=== PATIENT | female | born 1985 | race Caucasian/White ===

== ENCOUNTER 2020-05-24 13:31 | Observation (INO) | payer SELFPAY ==
[2020-05-24] VITALS (7 sets, daily range): BP systolic 123–139; BP diastolic 67–92; PULSE 63–82; RESP 20; TEMP 36.3–36.5; O2SAT 98–100; BMI 33.8
--- NOTE | ~2020-05-24 | MR_ITS ---
EXAMINATION: MR brain/brain stem wo/w con DATE: 05/25/2020 09:27 INDICATION: Dizziness. Right hand numbness. Headache/pain/pressure around the right eye. TECHNIQUE: Magnetic resonance imaging (MRI) of the brain and brainstem was performed without and with 19 mL Multihance intravenous contrast. Sequences included sagittal and axial T1-weighted SE, axial d iffusion-weighted FS SE, axial T2*-weighted GRE, axial T2-weighted FLAIR, and axial T2-weighted FSE. Postcontrast axial and coronal T1-weighted SE was obtained. Apparent diffusion coefficient (ADC) maps were created. COMPARISON: Brain MR dated 10/13/[address] dated 05/24/2020 FINDINGS: There are no areas of restricted diffusion to suggest acute infarction. No intracranial hemorrhage or abnormal intracranial mass lesion. There are no intraparenchymal signal abnormalities seen on the ot her pulse sequences. The ventricles are symmetric and normal in size. There are no abnormal extra-axi al fluid collections. Flow voids are seen in the cerebral arteries on the T2-weighted sequences consi stent with their expected patency. Visualized orbits and soft tissues are unremarkable. There are no areas of abnormal enhancement on the post contrast images. IMPRESSION: 1. Normal brain MR. Reviewed, dictated and finalized at location A. IMPRESSION: 1. Normal brain MR.
--- NOTE | ~2020-05-24 | CT_ITS ---
EXAMINATION: CTA brain carotid EXAM DATE: 05/25/2020 09:43 INDICATION: Dizziness, right hand numbness. TECHNIQUE: Noncontrast head CT. Spiral CTA of the carotid arteries was performed with intravenous i njection 100 cc of Omnipaque 350. Axial, coronal, sagittal reformatted images reviewed. Additional r eformatted images created on dedicated 3-D workstation. NASCET comparable standard used to assess th e degree of arterial stenosis. Spiral CT angiogram cerebral arteries performed with the same intrave nous injection of contrast. Source images of the brain CTA transferred to dedicated workstation for 3 -D rotational image creation. Coronal, sagittal maximum intensity pixel images also reviewed. The d ose-length product (DLP) for this examination was 1636.79 mGy-cm. The exposure was tailored accordi ng to patient size, and iterative reconstruction (ASIR) was used as additional dose reduction techniq ue. Correlation is made to brain MRI earlier same date. FINDINGS: There is no carotid plaque or stenosis. The vertebral arteries are codominant. There is no carotid or vertebral basilar arterial dissection or fibromuscular dysplasia. There are no cerebral a rtery aneurysms. There is symmetric cerebral artery arborization. The sagittal, transverse and sigmoi d sinuses enhance normally, no venous sinus thrombosis. Internal cerebral veins also enhance normally . There is no acute intraparenchymal hemorrhage. No evidence of intraparenchymal brain mass lesion. N o evidence of acute infarction. There is no mass effect or midline shift. There is no obstructive hyd rocephalus suspected. There are no extra-axial collections. There are no calvarial acute fractures. There are no areas of abnormal enhancement on the post contrast images. IMPRESSION: 1. Normal CTA brain carotid exam. 2. No carotid plaque or stenosis. Reviewed, dictated and finalized at location G.
--- NOTE | ~2020-05-24 | CT_ITS ---
EXAMINATION: CT abdomen pelvis w con DATE: 05/24/2020 15:48 INDICATION: Right lower quadrant abdominal pain, leukocytosis TECHNIQUE: Computed tomography (CT) of the abdomen and pelvis was performed with 100 cc Omnipaque 350 intravenous contrast. Automated exposure control and iterative reconstruction technique were employe barry. Exam dose: 1184.24 mGy-cm total exam DLP. COMPARISON: 03/24/2015 CT abdomen pelvis FINDINGS: The lung bases are clear. Normal heart size. No pericardial or pleural effusion. The liver, gallbladder, bile ducts, spleen, pancreas and pancreatic duct, and adrenal glands and kidn eys are unremarkable. Normal caliber of the abdominal aorta. No intraperitoneal or retroperitoneal or pelvic mass lesion or adenopathy or ascites. The urinary bladder, uterus and adnexal areas are unremarkable. Probable appendectomy. No bowel obstruction, bowel wall thickening, pneumatosis or intraperitoneal free air. Fat-containing small umbilical hernia. Probable hemangioma of the left side of the L4 vertebral body. IMPRESSION: Probable appendectomy Reviewed, dictated and finalized at Location A. Reviewed, dictated and finalized at location A. IMPRESSION: Probable appendectomy
--- NOTE | ~2020-05-24 | XR_ITS ---
XR chest 2V DATE: 05/24/2020 14:29 INDICATION: Chest pain, right numbness and tingling in the groin area. TECHNIQUE: PA and lateral views COMPARISON: None FINDINGS: Normal heart size. No hilar or mediastinal enlargement. The lungs are clear of infiltrate o r consolidation. No pleural effusion or pulmonary vascular congestion or pneumothorax. IMPRESSION: No active cardiopulmonary disease Reviewed, dictated and finalized at location A.
--- NOTE | ~2020-05-24 | CT_ITS ---
EXAMINATION: CT brain wo con DATE: 05/24/2020 14:27 INDICATION: Right upper extremity paresis. Right-sided numbness. TECHNIQUE: Computed tomography (CT) of the head was performed without intravenous contrast. The mA wa s adjusted according to patient size. Iterative reconstruction technique was employed. Exam dose: 60 5.33 mGy-cm total exam DLP. COMPARISON: 10/13/2016 MRI brain/brainstem FINDINGS: No intracranial mass lesion or hemorrhage or cerebrovascular accident. No midline shift or mass effect. No subdural or epidural hematoma. Normal ventricular size. The orbits are unremarkable. The mastoid air cells and paranasal sinuses included in the examination are unremarkable. No skull fr acture or bone destruction. IMPRESSION: Normal examination Reviewed, dictated and finalized at Location A. Reviewed, dictated and finalized at location A. IMPRESSION: Normal examination
--- NOTE | 2020-05-24 13:33 | ECG_ITS ---
Measurements Intervals [place] Rate: 79 P: 53 WA: 167 QRS: 54 QRSD: 95 T: 31 QT: 374 QTc: 429 Interpretive Statements SINUS RHYTHM BASELINE ARTIFACT- I, II NORMAL ECG Electronically Signed On 05-24-2020 15:51:20 CDT by Roger Gordon D.O.
--- NOTE | 2020-05-24 13:39 | ED.NEUROSD ---
HPI - Neuro Symptoms/Deficit General Chief Complaint: Neuro Symptoms/Deficit Stated Complaint: RT side numbness/tingling, SOB, dizzy Time Seen by Provider: 05/24/20 13:39 Source: patient Mode of arrival: ambulatory Limitations: no limitations History of Present Illness HPI Narrative: Patient is a 35-year-old female with a history of anxiety and depression who presents for evaluation of multiple symptoms. Patient reportedly has had worsening intermittent dizziness and spinning sensation since around 9:30 AM this morning. Patient is reporting concurrent chest pain over the center of her chest since that time. She also is reporting right lower abdominal pain. She reports she is currently menstruating, denies any brisk bleeding. Patient states she typically has quite heavy periods. She denies any fever, chills, she reports nausea without emesis. Her has a history of vertigo but she denies any vertigo history in herself. Patient also reports tingling in her fingers in her right hand. Patient denies any current vision changes, but reports pain behind her right eye. She does report anxiety but states it does not feel consistent with her previous panic attacks. Patient denies any history of hypertension. Related Data Home Medications Medication Instructions Recorded Confirmed No Home Medications 05/24/20 05/24/20 Allergies Allergy/AdvReac Type Severity Reaction Status Date / Time levofloxacin Allergy Severe Anaphylactic Verified 05/24/20 13:43 Shock Review of Systems Review of Systems: Narrative: CONSTITUTIONAL: Denies fever, chills, or sweats. EYES: Denies visual changes, redness, or discharge. ENT: Denies rhinorrhea, congestion, sore throat, or otalgia. CARDIOVASCULAR: Reports chest pain, denies palpitations, or edema. RESPIRATORY: Denies cough or dyspnea. GASTROINTESTINAL: Reports right lower pelvic pain, nausea without vomiting GENITOURINARY: Denies dysuria or hematuria. SKIN: Denies rash or itching. MUSCULOSKELETAL: Denies back pain, joint pain, or myalgia. NEUROLOGIC: Reports pain behind her right eye, reports tingling in her right hand, reports weakness in her right hand and right leg. Reports dizziness. PSYCHIATRIC: Reports anxiety and depression [facility] Past Medical History Medical History (Updated 05/24/20 @ 16:50 by Selena Soto MD) Anemia Anxiety Depression Hypothyroidism Migraine Surgical History Surgical History (Updated 05/24/20 @ 16:50 by Selena Soto MD) H/O section History of appendectomy Social History Social History (Updated 05/24/20 @ 14:11 by Selena Soto MD) Smoking status: Former smoker Tobacco type: cigarettes Smoking end date: 05/24/20 Alcohol intake: current Alcohol use details: Social Substance use: never Living arrangements: with family Gender identity (if verbalized by the patient): Female Exam Narrative: Exam Narrative: GENERAL: Awake, alert, conversant HEAD: Normocephalic, atraumatic. EYES: PERRLA and EOMI. ENT: Nares clear, no rhinorrhea or epistaxis. Mucous membranes moist. NECK: Supple. CHEST: No respiratory distress, breathing even and non labored, no chest wall tenderness HEART: Regular rate, sinus rhythm ABDOMEN:Non distended, non tender EXTREMITIES: Normal range of motion. No edema. SKIN: Warm, dry, no rash. NEURO:No focal deficits. Alert and oriented x3. Finger to nose intact bilaterally, patient endorses this is a more difficult task to complete with the right hand. EOMs intact without nystagmus. No facial droop/asymmetry noted bilaterally. Grimace intact. Intact sensation in face. Hearing intact bilaterally. Shoulder shrug intact. Strength 5/5 bilateral upper extremities. 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 Strength 5/5 bilateral lower extremities. Reflexes 2+ patellar. Heel to small intact bilaterally. Ambulatory exam deferred. Course Vital Signs Vital signs: Vital Signs [place]
[2020-05-24 14:32] LABS: Add Urine Microscopic? YES; Appearance Urine Clear (Clear); Bacteria Urine Trace /hpf; Bilirubin Urine Negative (Negative); Blood Urine 3+ (Negative); Color Urine Straw (Yellow); Glucose Urine UA Negative (Negative); Ketones Urine Negative (Negative); Leukocyte Esterase Ur Negative LEU/UL (Negative); Nitrate Urine Negative (Negative); Protein Urine Negative (Negative); RBC Urine 0-2 /hpf (0-2); Specific Grav Ur 1.005 (1.001-1.035); Squamous Epithelial Cell Urine Rare /hpf (Few); Urobilinogen Urine Negative mg/dL (<2.0); WBC Urine 0-3 /hpf
[2020-05-24 14:33] LABS: Basophils Absolute Auto 0.1 K/mm3 (0.0-0.1); Basophils Percent Auto 0.5 % (0.2-1.2); Eosinophils Absolute Auto 0.1 K/mm3 (0-0.3); Eosinophils Percent Auto 0.7 % (0-4.4); Hematocrit 41.2 % (37.0-47.0); Hemoglobin 14.1 g/dL (12.0-15.0); Immature Granulocyte Absolute 0.08 K/mm3 (0.00-0.031); Immature Granulocyte Percent A 0.6 % (0-0.5); Lymphocytes Absolute Auto 3.59 K/mm3 (0.9-3.2); Lymphocytes Percent Auto 27.7 % (18.3-44.2); Mean Corpuscular HGB Conc 34.2 g/dl (32-36); Mean Corpuscular Hemoglobin 29.6 pg (26-34); Mean Corpuscular Volume 86.4 fl (80-100); Mean Platelet Volume 10.4 fl (7.4-10.4); Monocytes Absolute Auto 0.9 K/mm3 (0.1-0.6); Monocytes Percent Auto 6.6 % (2.6-8.5); Neutrophils Absolute Auto 8.3 K/mm3 (1.3-6.7); Neutrophils Percent Auto 63.9 % (45.5-73.1); Platelet Count Result 435 k/mm3 (150-375); Red Blood Count 4.77 M/mm3 (4.2-5.4); Red Cell Distribution Width 12.7 % (11.5-14.5)
[2020-05-24] MEDS: SODIUM CHLORIDE 0.9% IV 1,000 ML 999 ML IV CONT (14:35)
[2020-05-24] MEDS: diphenhydrAMINE HCl INJ 50 MG/ML VIAL 25 MG IV PUSH (14:35)
[2020-05-24] MEDS: MAGNESIUM SULF 2 GM/WATER 50ML 2 GM/50 ML BAG IVPB (14:38)
[2020-05-24 14:39] LABS: Alanine Aminotransferase 25 U/L (4-35); Albumin Level 4.4 g/dL (3.5-5.1); Alkaline Phosphatase 77 U/L (38-126); Anion Gap 12 mmol/L (8-16); Aspartate Amino Transferase 25 U/L (14-36); Bilirubin,Total 0.3 mg/dL (0.2-1.3); Blood Urea Nitrogen 10 mg/dL (7-17); Calcium 9.6 mg/dL (8.4-10.2); Carbon Dioxide 19 mmol/L (22-30); Chloride 106 mmol/L (98-107); Estimated CRCL calculation 121 ml/min; Estimated Glomerular Filt Rate > 60; Glucose 100 mg/dL (65-105); Potassium 3.7 mmol/L (3.4-5.0); Sodium 137 mmol/L (137-145)
[2020-05-24 14:41] LABS: Prothrombin Time 12.7 Seconds (11.1-14.7)
[2020-05-24 14:42] LABS: Partial Thromboplastin Time 31.7 SECONDS (22.3-36.8)
[2020-05-24 14:51] LABS: NT Pro B Type Natriuretic Pept 34 PG/ML (5-100); Troponin I < 0.012 ng/mL (0.000-0.034)
[2020-05-24] MEDS: ASPIRIN 81 MG CHEWABLE TABLET 324 MG PO (17:08)
--- NOTE | 2020-05-24 21:45 | ADMGEN ---
This patient, Evelyn Mckeon, was admitted to [facility] Surg Room 303-01. Patient/family oriented to hospital policies and general routines including ID bracelet, bed and alarms, visiting hours, pain management, procedures, bathroom and other care routines, personal items, smoking policy, room service/diet, and visiting hours. Valuables list has been completed. Information on how to activate the Rapid Response Team has been discussed. Patient/Family are encouraged to report perceived risks to care and to ask questions if they do not understand what they are told or what they should do.
--- NOTE | 2020-05-24 23:15 | PM.IMHP ---
H&P: HPI History of Present Illness Date/Time: 05/24/20 23:15 Chief complaint: Dizziness, right hand numbness Narrative: Evelyn Mckeon is a 35-year-old female with history of depression and anxiety who presented to the emergency department earlier today for evaluation of dizziness and right hand numbness. For the last several days she has had ?background dizziness? and with further questioning she describes experiencing a rocking cessation, like she is on a boat, when lying flat. It is not necessarily better or worse with position changes, however and it seems to be intermittent as to when it occurs. With the vertigo she has had mild nausea but no vomiting. She also reports pressure behind the right orbit but goes on to say that has been present since January and initially she had assumed it was secondary to a tooth infection however that tooth has since been extracted and she continues to have that pressure sensation. She also notes a change in sensation in the area around the right eye when compared to the left. Not long prior to arrival today, she was making brownies in the kitchen when she developed sudden onset of a tingling/numbing pain in her right forearm down into all of her fingers. The arm started to shake uncontrollably, and continued until she was given Ativan in the emergency department. She has some problems with her shoulder and has occasional pain or tingling with certain yoga poses, however she has never had paresthesias like this before. As mentioned, she has a history of anxiety but she goes on to say that her anxiety has never presented like this before. She will occasionally get midsternal chest heaviness and shortness of breath and did experience that somewhat today, but it does not sound as though that is a new finding for the patient. At the time my evaluation she feels ?foggy? but she was given Ativan in the emergency department. She denies headache, gait disturbances, focal weakness, currently paresthesias, history of seizures, oral pain, sinus congestion, rhinorrhea, aural fullness, and tinnitus. No palpitations or current shortness of breath. She denies current chest pain, pleuritic pain, palpitations, lower extremity edema, recent travel, and history of venous thromboembolism. She has not been taking any new medication or watj-ggo-kexjzur supplements. She denies alcohol and drug use. No significant caffeine intake. She has not had any new stressors in her life. Review of Systems Review of Systems: Narrative: Twelve systems were reviewed with pertinent positives and negatives as per HPI. She has year round allergies, but seems to have increasing rhinorrhea about this time of year. No otalgia or odynophagia. She denies anosmia and dysgeusia. No vomiting. She is currently menstruating. Last couple of days she has had some discomfort in her right groin, sort of like a muscle strain but she does not know how that could have occurred. She does not think it is related to her menstrual cycle. No dysuria. She denies concerns for STIs. Except as documented, other systems were reviewed and are negative. [facility] Past Medical History Medical History (Updated 05/25/20 @ 00:33 by Bernice Arechiga PA-C) Anemia With . Anxiety Depression Hypothyroidism Not currently on medication. Surgical History Surgical History (Updated 05/25/20 @ 00:25 by Bernice Arechiga PA-C) History of appendectomy (~03/2015) History of section (~09/2009) Family History Family History (Updated 05/25/20 @ 00:26 by Bernice Arechiga PA-C) Mother Hypothyroidism Other Unknown family medical history Social History Social History (Updated 05/25/20 @ 00:26 by Bernice Arechiga PA-C) Smoking packs per day: 1 Smoking cigarettes per day: 20.0 Years smoked: 20 Smoking pack-years: 20.00 Smoking status: Current every day smoker Tobacco type: cigarettes Second hand tobacco smoke exposure: No Smoking end d
[2020-05-25] VITALS (7 sets, daily range): BP systolic 125–133; BP diastolic 67–69; PULSE 58–90; RESP 20; TEMP 36.2–36.4; O2SAT 99–100
--- NOTE | 2020-05-25 | ECHO_ITS ---
Patient Info Name: Evelyn Mckeon Age: 35 years : 1985 Gender: Female Ht: 67 in Wt: 216 lbs BSA: 2.19 m2 HR: 68 bpm BP: 133 / 67 mmHg Heart Rhythm: Sinus Rhythm Technical Quality: Good Exam Date: 05/25/2020 10:38 AM Exam Location: [facility] Card Pulmonary Patient Status: Inpatient Admit Date: 05/24/2020 Staff Ordering Physician: Juan Crenshaw MD Box Attacher: Jacob Felder RDCS, RT Attending Provider: Jay Jay Luo PA-C Referring Physician: Flower FAIRBANKS; Exam Type: CA echo dop bubble study w con Study Info Indications R53.1 - Weakness Complete two-dimensional, color flow and Doppler transthoracic echocardiogram is performed with contrast to opacify the left ventricle and to improve the deliniation of the left ventricle endocardial borders. Complete two-dimensional, color flow and Doppler transthoracic echocardiogram is performed with agitated saline. Summary 1. Left ventricular systolic function is normal, estimated at >70%. 2. There is no increased left ventricular wall thickness. 3. The left ventricular diastolic function is normal. 4. No intracardiac shunt at atrial level with injection of agitated saline. 5. There is trace tricuspid valve regurgitation. 6. No pulmonary hypertension, estimated pulmonary arterial systolic pressure is 27 mmHg. Left Ventricle Left ventricular chamber dimension is normal. Left ventricular systolic function is normal, estimated at >70%. There is no increased left ventricular wall thickness. The left ventricular diastolic function is normal. Right Ventricle Right ventricular chamber dimension is normal. Right ventricular systolic function is normal. Left Atria Left atrial chamber dimension is normal. Right Atria Right atrial chamber dimension is normal. Atrial Septum No intracardiac shunt at atrial level with injection of agitated saline. Aortic Valve The aortic valve is not well visualized. There is no aortic valve stenosis. There is no aortic valve regurgitation. Pulmonic Valve The pulmonic valve is not well visualized. Mitral Valve The mitral valve has normal leaflets. There is no mitral valve regurgitation. Tricuspid Valve The tricuspid valve leaflets are normal. There is trace tricuspid valve regurgitation. No pulmonary hypertension, estimated pulmonary arterial systolic pressure is 27 mmHg. Pericardium/Pleural The pericardium appears normal. Inferior Vena Cava Normal inferior vena cava with >50% collapse upon inspiration consistent with normal right atrial pressure, 5 mmHg. Aorta The aortic root size at the sinus of Valsalva is normal. Left Ventricular Outflow Tract Name Value Normal LVOT 2D LVOT Diameter 2.0 cm LVOT Doppler LVOT Peak Gradient 4 mmHg LVOT Mean Gradient 2 mmHg LVOT VTI 21 cm LVOT VTI/AV VTI Ratio 0.7 LVOT Stroke Volume 65 ml LVOT CO 3.6 l/min LVOT CI 1.7 l/min/m2 Mitral Valve
[2020-05-25] MEDS: ACETAMINOPHEN 325 MG TABLET 650 MG PO ×2 (03:29→10:52)
[2020-05-25 06:15] LABS: Hematocrit 38.7 % (37.0-47.0); Hemoglobin 13.1 g/dL (12.0-15.0); Mean Corpuscular HGB Conc 33.9 g/dl (32-36); Mean Corpuscular Hemoglobin 29.9 pg (26-34); Mean Corpuscular Volume 88.4 fl (80-100); Mean Platelet Volume 10.2 fl (7.4-10.4); Platelet Count Result 334 k/mm3 (150-375); Red Blood Count 4.38 M/mm3 (4.2-5.4); White Blood Count 10.3 K/mm3 (4.5-10.0)
[2020-05-25 06:34] LABS: Anion Gap 6 mmol/L (8-16); Blood Urea Nitrogen 10 mg/dL (7-17); CRP 0.7 mg/dL (<1.0); Calcium 8.6 mg/dL (8.4-10.2); Carbon Dioxide 23 mmol/L (22-30); Chloride 108 mmol/L (98-107); Estimated CRCL calculation 116 ml/min; Estimated Glomerular Filt Rate > 60; Glucose 91 mg/dL (65-105); Magnesium 2.3 mg/dL (1.6-2.3); Potassium 4.1 mmol/L (3.4-5.0); Sodium 137 mmol/L (137-145)
[2020-05-25 07:45] LABS: Folic Acid > 20.0 ng/mL (2.76->20)
[2020-05-25] MEDS: ASPIRIN 81 MG CHEWABLE TABLET PO (09:46)
--- NOTE | 2020-05-25 10:32 | WPDNEURCNPN ---
Assessment and Plan Assessment and plan (1) Dizziness: Code(s): R42 - Dizziness and giddiness Status: Acute (2) Numbness and tingling in right hand: Code(s): R20.0 - Anesthesia of skin; R20.2 - Paresthesia of skin Status: Acute (3) Anxiety: Code(s): F41.9 - Anxiety disorder, unspecified Status: Acute Additional Plan Considering the possibility of the migraine versus the orbital pathology MRI of the brain will be obtained initially and if the MRI of the head is negative CTA will be obtained to rule out the remote possibility of aneurysm and if necessary will also obtain the MRI of the orbit special views Consult date: 05/25/20 Time Seen: 10:32 HPI: Evelyn Mckeon is a 35 year old female right-handed female has been admitted to the hospital for the complaints of dizziness along with right hand numbness of several days duration described as rocking like sensation as if she is on a boat man lying flat and not necessarily better or worse with the changes in the position she also carries the diagnosis of anxiety with depression in addition she is complaining of pressure behind her right orbit since January which was initially attributed to the tooth infection which has been extracted though she continues to have pressure-like sensation around the right eye she reported sudden development of the tingling and numbness in her right forearm including the fingers and complained of uncontrollable shaking of the right upper extremity for which she was given Ativan in the emergency room he complains of shoulder discomfort occasional pain and tingling and as mentioned before she does have a history of anxiety Review of Systems Review of Systems: All systems reviewed & are unremarkable except as noted in HPI and below PMFSH Past Medical History Medical History (Updated 05/25/20 @ 00:33 by Bernice Arechiga PA-C) Anemia With . Anxiety Depression Hypothyroidism Not currently on medication. Surgical History Surgical History (Updated 05/25/20 @ 00:25 by Bernice Arechiga PA-C) History of appendectomy (~03/2015) History of section (~09/2009) Family History Family History (Updated 05/25/20 @ 00:26 by Bernice Arechiga PA-C) Mother Hypothyroidism Other Unknown family medical history Social History Social History (Updated 05/25/20 @ 00:26 by Bernice Arechiga PA-C) Smoking packs per day: 1 Smoking cigarettes per day: 20.0 Years smoked: 20 Smoking pack-years: 20.00 Smoking status: Current every day smoker Tobacco type: cigarettes Second hand tobacco smoke exposure: No Smoking end date: 05/24/20 Alcohol intake: current Drinks per week: 1 Alcohol use details: Social Substance use: never Living arrangements: with family Additional living arrangements comments: Lives in [place] with her Additional occupation/education comments: Not currently employed. Gender identity (if verbalized by the patient): Female Spiritual care concerns: No Meds Home Medications and Allergies Home Medications Medication Instructions Recorded Confirmed Type No Home Medications 05/24/20 05/24/20 History Allergies Allergy/AdvReac Type Severity Reaction Status Date / Time levofloxacin Allergy Severe Anaphylactic Verified 05/24/20 13:43 Shock Vital Signs Vital Signs - 24 hr 05/24/20 13:37 05/24/20 15:18 05/24/20 16:30 Temperature 36.5 C Pulse Rate 82 77 63 Respiratory Rate 20 20 20 Blood Pressure 134/82 139/74 129/75 Pulse Oximetry 100 100 99 05/24/20 18:00 05/24/20 19:00 05/24/20 20:00 Temperature Pulse Rate 74 71 76 Respiratory Rate 20 20 20 Blood Pressure 123/67 139/76 129/92 H Pulse Oximetry 100 98 99 05/24/20 21:45 05/25/20 00:00 05/25/20 02:00 Temperature 36.3 C L Pulse Rate 64 85 Respiratory Rate 20 20 Blood Pressure 137/67 Pulse Oximetry 100 100 05/25/20 04:00 05/25/20
[2020-05-25] MEDS: PERFLUTREN LIPID MICROSPHERES 1.5 ML VIAL DILUTED TO 10 ML TOTAL VOLUME IV PUSH (11:37)
--- NOTE | 2020-05-25 14:25 | PM.DS ---
DS: Admitting Diagnosis Admitting Diagnosis Admitting Diagnosis: Dizziness, right hand numbness DS: Discharge Diagnosis Discharge Diagnosis (1) Neurological symptoms: Code(s): R29.90 - Unspecified symptoms and signs involving the nervous system Status: Acute Assessment and Plan: She has several symptoms to include sensation changes around the right eye, paresthesias of the right arm with uncontrollable shaking, and vertigo. Unclear if these are all related but differential diagnosis includes atypical migraine, anxiety, or less likely focal seizure or TIA/CVA. Telemetry grossly unremarkable. Brain/Head/neck imaging grossly unremarkable during her stay. Discussed with Dr. Jackman who is okay with discharge with follow up as an outpatient for possible MRI of the orbits for further evaluation. F/u with Neurology for further outpatient work up F/u with PCP as well (2) Anxiety: Code(s): F41.9 - Anxiety disorder, unspecified Status: Acute Assessment and Plan: Her symptoms improved after receiving Ativan. She is not on medication for anxiety, and may benefit from the addition of an SSRI. Will have her follow up with PCP (3) Leukocytosis: Code(s): D72.829 - Elevated white blood cell count, unspecified Status: Acute Assessment and Plan: She has a mild leukocytosis but is afebrile and gives no history to suggest underlying infection. WBC 10.3k today; improved Given dental issues and pressure about the right eye, I suppose she could have an apical abscess that we are not able to see on CT, although this seems unlikely As she has no symptoms of such, however, will hold on antibiotics. DS: Summary Hospital Course Reason for hospitalization: right hand numbness, dizziness, right eye pain; r/o CVA, brain aneurysm Hospital Course: Patient is a 35-year-old female with history of depression and anxiety who presented to the emergency department on 05/24 for evaluation of dizziness and right hand numbness. She had described dizziness for several days prior to presentation, in what was described as possibly vertigo. She also reported pressure behind right eye that had been present for several months prior. She also noted sudden onset of tingling/numbing pain in her right forearm down into all of her fingers. While in the ED she was given Ativan.Imaging, exam, and laboratory studies were reassuring for acute etiologies. Dr. Crenshaw (Neurology) was consulted from the ED who recommended admission for advanced imaging. Patient admitted under this setting. Please see H&P for further details. Presenting VS: Temp Pulse Resp BP Pulse Ox 97.7 F 82 20 134/82 100 05/24/20 13:37 05/24/20 13:37 05/24/20 13:37 05/24/20 13:37 05/24/20 13:37 Presenting Pertinent labs: WBC 13.0k, negative trop, vit b12 475, folate >20, TSH 1.770. CBC, coag, chemistry, UA otherwise unremarkable Micro: none Imaging: Head CT 05/24/20 14:31 IMPRESSION: Normal examination Chest X-Ray 05/24/20 14:47 IMPRESSION: No active cardiopulmonary disease Abdomen/Pelvis CT 05/24/20 16:00 IMPRESSION: Probable appendectomy Echo 05/25/20 Summary 1. Left ventricular systolic function is normal, estimated at >70%. 2. There is no increased left ventricular wall thickness. 3. The left ventricular diastolic function is normal. 4. No intracardiac shunt at atrial level with injection of agitated saline. 5. There is trace tricuspid valve regurgitation. 6. No pulmonary hypertension, estimated pulmonary arterial systolic pressure is 27 mmHg. Brain MRI 05/25/20 09:38 IMPRESSION: 1. Normal brain MR. Head/Neck CTA 05/25/20 14:03 IMPRESSION: 1. Normal CTA brain carotid exam. 2. No carotid plaque or stenosis. ECG: Interpretive Statements SINUS RHYTHM BASELINE ARTIFACT- I,
== END 2020-05-25 15:30 | disposition home or self-care (01) ==
LOC: ANHED 16:53 → ANH3MEDSUR 18:57
PROVIDERS: Physician Assistant; Admitting Provider Internal Medicine; Emergency Provider Emergency Medicine; Visit Provider Family Medicine
DX: R20.0 Anesthesia of skin (principal); R20.2 Paresthesia of skin; R42 Dizziness and giddiness; F41.8 Other specified anxiety disorders; D72.829 Elevated white blood cell count, unspecified; E03.9 Hypothyroidism, unspecified; F17.210 Nicotine dependence, cigarettes, uncomplicated
CPT/HCPCS: 36415; 70450; 70496; 70498; 70553; 71046; 74177; 80048; 80053; 81001; 81025; 82607; 82746; 83735; 83880; 84443; 84484; 85025; 85027; 85610; 85730; 86140; 93005; 96361; 96365; 96367; 96374; 96375; 99285; A9270; A9577; C8929; G0378; G0379; J0131; J1200; J2060; J3475; J7030; Q9957; Q9967

== ENCOUNTER 2022-04-15 13:11 | Emergency (ER) | payer SELFPAY ==
--- NOTE | ~2022-04-15 | CT_ITS ---
EXAMINATION: CT facial bones w con DATE: 04/15/2022 15:33 INDICATION: R max sinus pain/facial swelling . TECHNIQUE: Computed tomography (CT) of the facial bones and maxillofacial region was performed with 7 5 mL Omnipaque 300 intravenous contrast. Automated exposure control and iterative reconstruction tech nique were employed. The dose-length product was 307.45 mGy-cm. COMPARISON: None. FINDINGS: Soft Tissues: No significant superficial soft tissue swelling. Facial bones: No acute fracture. No lytic or blastic process. Eyes: The globes are intact. The soft tissue planes of the orbits are maintained. Paranasal Sinuses: Small right inferior maxillary retention cyst/polyp, otherwise the visualized aer ated spaces are clear. Foreign Bodies: No radiopaque foreign bodies. Other Findings: None. IMPRESSION: No evidence of acute facial bone fracture. No CT evidence of cellulitis, soft tissue abscess, or acut e/chronic sinusitis. Reviewed, dictated and finalized at location K. IMPRESSION: No evidence of acute facial bone fracture. No CT evidence of cellulitis, soft t issue abscess, or acute/chronic sinusitis.
[2022-04-15 13:12] VITALS: BP 150/86; PULSE 90; RESP 16; TEMP 36.1; O2SAT 100
[2022-04-15 13:27] VITALS: BP 145/92; PULSE 89; TEMP 37; O2SAT 100
--- NOTE | 2022-04-15 13:30 | ED.SKABFB ---
HPI - Skin/Abscess/Foreign Bdy General Chief complaint: Skin/Abscess/Foreign Body Stated complaint: facial swelling Time Seen by Provider: 04/15/22 13:21 Source: patient Mode of arrival: ambulatory Limitations: no limitations History of Present Illness HPI narrative: Patient is a 37-year-old female who presents the ED with report of swelling of her right side of face. Patient reports she was diagnosed with cellulitis of her right eyelid on 04/03. She saw her proc tech at that time and was prescribed amoxicillin 500 mg for 5 days. She finished these 04/08. She states since then, she has woken up most mornings with swelling in her R sided periorbital region/facial cheek. The swelling decreases throughout the day and upon sitting upright. She also reports itchiness and sinus congestion/pressure on R side. She had an appointment with her proc tech today for follow-up, but decided to come here instead. No eye pain, pain with eye movements vision changes, blurry/double vision, sore throat, cough, fever. Patient wears glasses. She takes Zyrtec daily and Benadryl nightly. Has not tried anything else for her symptoms. Related Data Allergies Allergy/AdvReac Type Severity Reaction Status Date / Time levofloxacin Allergy Severe Anaphylactic Verified 04/15/22 13:19 Shock Review of Systems Review of Systems: CONSTITUTIONAL: Denies fever, chills, or sweats. EYES: Reports swelling/itchiness to R sided face/periorbital region. Denies eye pain, blurry/double vision, visual changes, redness, or discharge. ENT: Reports sinus congestion/pressure R sided face. Denies sore throat. CARDIOVASCULAR: Denies chest pain. RESPIRATORY: Denies cough or dyspnea. GASTROINTESTINAL: Denies nausea, vomiting. NEUROLOGIC: Denies headache, numbness, or weakness. All systems reviewed & are unremarkable except as noted in HPI and below PMFSH Past Medical History Medical History Anemia With . Anxiety Depression Hypothyroidism Not currently on medication. Surgical History Surgical History History of appendectomy (~03/2015) History of section (~09/2009) Family History Family History (Updated 05/25/20 @ 00:26 by Bernice Arechiga PA-C) Mother Hypothyroidism Other Unknown family medical history Social History Social History Smoking packs per day: 1 Smoking cigarettes per day: 20.0 Years smoked: 20 Smoking pack-years: 20.00 Smoking status: Current every day smoker Tobacco type: cigarettes Second hand tobacco smoke exposure: No Smoking end date: 05/24/20 Alcohol intake: current Drinks per week: 1 Alcohol use details: Social Substance use: never Additional living arrangements comments: Lives in [place] with her Additional occupation/education comments: Not currently employed. Gender identity (if verbalized by the patient): Female Spiritual care concerns: No Exam Narrative: GENERAL: Well appearing, well-nourished, non-toxic, in no acute distress. HEAD: Normocephalic, atraumatic. EYES: PERRL/EOMI, conjunctivae clear bilaterally. No drainage. No erythema. No matting of eyelids. No swelling or redness of R eyelid or periorbital region appreciated. No pain with EOMI. No proptosis. No chemosis. NOSE: Normal, no drainage. Mild TTP over R maxillary sinus. No redness of R facial cheek. THROAT: Pharynx clear. MMs moist. Mild R tonsillar hypertrophy, but no exudate or erythema. NECK: Supple. No adenopathy appreciable, no masses. RESPIRATORY: Airway patent, respirations nonlabored. Clear to auscultation bilaterally, no rales, rhonchi, wheezing. CARDIOVASCULAR: Regular rate and rhythm without murmurs, rubs, or gallops. Peripheral pulses 2+ and equal bilaterally. MUSCULOSKELETAL: Moves all extremities. Strength/ROM intact without gross de
[2022-04-15 13:54] LABS: Basophils Absolute Auto 0.1 K/mm3 (0.0-0.1); Basophils Percent Auto 0.4 % (0.2-1.2); Eosinophils Percent Auto 0.2 % (0-4.4); Hematocrit 42.3 % (37.0-47.0); Hemoglobin 13.7 g/dL (12.0-15.0); Immature Granulocyte Absolute 0.05 K/mm3 (0.00-0.031); Immature Granulocyte Percent A 0.4 % (0-0.5); Lymphocytes Absolute Auto 2.32 K/mm3 (0.9-3.2); Lymphocytes Percent Auto 19.8 % (18.3-44.2); Mean Corpuscular HGB Conc 32.4 g/dl (32-36); Mean Corpuscular Hemoglobin 28.6 pg (26-34); Mean Corpuscular Volume 88.3 fl (80-100); Mean Platelet Volume 9.9 fl (7.4-10.4); Monocytes Absolute Auto 0.6 K/mm3 (0.1-0.6); Monocytes Percent Auto 5.2 % (2.6-8.5); Neutrophils Absolute Auto 8.7 K/mm3 (1.3-6.7); Platelet Count Result 371 k/mm3 (150-375); Red Blood Count 4.79 M/mm3 (4.2-5.4); Red Cell Distribution Width 13.5 % (11.5-14.5); White Blood Count 11.7 K/mm3 (4.5-10.0)
[2022-04-15 14:04] LABS: Alanine Aminotransferase 24 U/L (6-35); Albumin Level 4.7 g/dL (3.5-5.1); Alkaline Phosphatase 66 U/L (38-126); Anion Gap 11 mmol/L (8-16); Aspartate Amino Transferase 23 U/L (14-36); Bilirubin,Total 0.6 mg/dL (0.2-1.3); Blood Urea Nitrogen 12 mg/dL (7-17); Calcium 9.1 mg/dL (8.4-10.2); Carbon Dioxide 23 mmol/L (22-30); Chloride 106 mmol/L (98-107); Estimated CRCL calculation 120 ml/min; Estimated Glomerular Filt Rate > 60; Glucose 98 mg/dL (65-110); Potassium 4.3 mmol/L (3.4-5.0); Sodium 140 mmol/L (137-145)
--- NOTE | 2022-04-15 15:24 | PC.NURSE ---
Pt reports she is unable to urinate but also states there is no possibility of her being . Pt is very confident of this and asked to get the CT without a preg test. CT called.
[2022-04-15 16:55] VITALS: RESP 17
== END 2022-04-15 16:55 | disposition home or self-care (01) ==
PROVIDERS: Physician Assistant; Emergency Provider Emergency Medicine
DX: R22.0 Localized swelling, mass and lump, head (principal); Z86.2 Personal history of diseases of the blood and blood-forming organs and certain disorders involving the immune mechanism; Z87.891 Personal history of nicotine dependence
CPT/HCPCS: 36415; 70487; 80053; 85025; 99284; Q9967

== ENCOUNTER 2022-05-18 10:06 | Emergency (ER) | payer SELFPAY ==
[2022-05-18 10:18] VITALS: BP 125/95; PULSE 92; RESP 20; TEMP 37.1; O2SAT 99
--- NOTE | 2022-05-18 10:32 | ED.URI ---
HPI - URI/Sore Throat General Chief Complaint: Upper Respiratory Infection Stated Complaint: COUGH/CONGESTION/CRACKLING IN CHEST Time Seen by Provider: 05/18/22 10:20 Source: patient Mode of arrival: ambulatory Limitations: no limitations History of Present Illness HPI Narrative: Ms. Mckeon is a 37-year-old female patient presenting to the clinic today with complaints of cough/congestion, rattling in her chest. She reports that this is been ongoing x2 weeks. States that she had an upper respiratory infection and has a lingering cough. She denies any fever or chills. When her cough is productive it is clear phlegm. She has a history of asthma and is a smoker. She denies any shortness of breath or chest pain. MD elicited complaint: sore throat and nasal congestion Related Data Allergies Allergy/AdvReac Type Severity Reaction Status Date / Time levofloxacin Allergy Severe Anaphylactic Verified 05/18/22 10:14 Shock Review of Systems Review of Systems: Pertinent positives per HPI. Patient denies any fever, chills, rash, headache, visual changes, dizziness, shortness of breath, chest pain, palpitations, nausea, vomiting, diarrhea, constipation, abdominal pain, or any urinary issues. [facility] Past Medical History Medical History Anemia With . Anxiety Depression Hypothyroidism Not currently on medication. Surgical History Surgical History History of appendectomy (~03/2015) History of section (~09/2009) Family History Family History Mother Hypothyroidism Other Unknown family medical history Social History Social History Smoking packs per day: 1 Smoking cigarettes per day: 20.0 Years smoked: 20 Smoking pack-years: 20.00 Smoking status: Current every day smoker Tobacco type: cigarettes Second hand tobacco smoke exposure: No Smoking end date: 05/24/20 Alcohol intake: current Drinks per week: 1 Alcohol use details: Social Substance use: never Additional living arrangements comments: Lives in [place] with her Additional occupation/education comments: Not currently employed. Gender identity (if verbalized by the patient): Female Spiritual care concerns: No Comments At the time of my signature, I reviewed and agree with the nursing past medical, surgical, social, and family history. There is no relevant family history pertinent to the patient complaint. Exam Narrative: General: Well-developed, well nourished, in no apparent distress Head: Normocephalic, atraumatic Eyes: Pupils equally round and reactive to light bilaterally, EOM intact, sclera and conjunctive clear, no discharge, lids normal Ears: TMs intact and clear, ear canals clear, no drainage, grossly hearing normal. Nose: Nares patent, no discharge, no inflammation, no sinus tenderness. Mouth: Oral pharynx without lesions or masses, good dentition, MMM. Neck: Supple, trachea midline, no enlargement of anterior or posterior cervical nodes, no thyroid masses or goiter palpable. Cardio: Regular rate and rhythm, s1 and s2 normal, no murmur appreciated. Resp: Expiratory wheezing throughout, no rhonchi, rales, or rubs Course Course Emergency Course: Portions of this record may have been created with voice recognition software. Level of Care: Express Care Visit Vital Signs Vital signs: Vital Signs Temperature 37.1 C 05/18/22 10:18 Pulse Rate 92 05/18/22 10:18 Respiratory Rate 05/18/22 10:18 Blood Pressure 125/95 H 05/18/22 10:18 Pulse Oximetry 99 05/18/22 10:18 Oxygen Delivery Room Air 05/18/22 10:18 Temperature 37.1 C 05/18/22 10:18 Pulse Rate 92 05/18/22 10:18 Respiratory Rate 05/18/22 10:18 Blood
== END 2022-05-18 10:48 | disposition home or self-care (01) ==
PROVIDERS: Emergency Provider Nurse Practitioner Family
DX: J20.8 Acute bronchitis due to other specified organisms (principal); Z87.891 Personal history of nicotine dependence; J45.909 Unspecified asthma, uncomplicated
CPT/HCPCS: 99213; G0463

== ENCOUNTER 2023-01-05 09:12 | Emergency (ER) | payer SELFPAY ==
--- NOTE | 2023-01-05 09:23 | ED.URI ---
HPI - URI/Sore Throat General Chief Complaint: Upper Respiratory Infection Stated Complaint: scratchy throat, drainage Time Seen by Provider: 01/05/23 09:40 Source: patient, RN notes reviewed and old records reviewed Mode of arrival: ambulatory Limitations: no limitations History of Present Illness HPI Narrative: 34-year-old female presents to the [facility] with complaints of a scratchy throat and drainage since Sunday, 3 days ago. 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 Reports doing a COVID test at home, reports that was negative, declined testing here patient states that she is concerned for strep. Onset (ago): day(s) (3) Related Data Home Medications Medication Instructions Recorded Confirmed No Home Medications 01/05/23 01/05/23 Allergies Allergy/AdvReac Type Severity Reaction Status Date / Time levofloxacin Allergy Severe Anaphylactic Verified 01/05/23 09:38 Shock Review of Systems Review of Systems: All systems reviewed & are unremarkable except as noted in HPI and below Constitutional: Constitutional: Reports no additional constitutional complaints Eyes: Eyes: Reports no additional eye complaints ENT: Reports as per HPI, Reports post nasal drip and Reports sore throat Cardiovascular: Cardiovascular: Reports no additional cardiovascular complaints, Denies chest pain and Denies dyspnea Respiratory: Respiratory: Reports no additional respiratory complaints, Denies chest congestion, Denies cough and Denies dyspnea Gastrointestinal: Gastrointestinal: Reports no additional gastrointestinal complaints, Denies abdominal pain, Denies nausea and Denies vomiting Musculoskeletal: Musculoskeletal: Reports no additional musculoskeletal complaints Integumentary/Breasts: Skin/Breast: Reports system reviewed and no additional complaints, except as docu Neurologic: Reports system reviewed and no additional complaints, except as documented Psychiatric: Psychiatric: Reports no additional psychiatric complaints Allergic/Immunologic: Allergic/Immunologic: Reports no additional allergic/immunologic complaints [facility] Past Medical History Medical History Anemia With . Anxiety Depression Hypothyroidism Not currently on medication. Surgical History Surgical History History of appendectomy (~03/2015) History of section (~09/2009) Family History Family History Mother Hypothyroidism Other Unknown family medical history Social History Social History Smoking packs per day: 1 Smoking cigarettes per day: 20.0 Years smoked: 20 Smoking pack-years: 20.00 Smoking status: Current every day smoker Tobacco type: cigarettes Second hand tobacco smoke exposure: No Smoking end date: 05/24/20 Alcohol intake: current Drinks per week: 1 Alcohol use details: Social Substance use: never Living arrangements: with family Additional living arrangements comments: Lives in [place] with her Additional occupation/education comments: Not currently employed. Gender identity (if verbalized by the patient): Female Spiritual care concerns: No Comments At the time of my signature, I reviewed and agree with the nursing past medical, surgical, social, and family history. There is no relevant family history pertinent to the patient complaint. Exam Const: General: cooperative, healthy appearing, comfortable, no acute distress, well developed, alert and well nourished Nutritional Appearance: well nourished Orientation/consciousness: patient oriented x3 Limitations: no limitations HENMT: Head: normal to inspection Ears: hearing grossly normal bilaterally and external ears normal Face/Nose/Sinus: Normal external nose present, Normal nares present, Norm
[2023-01-05 09:36] VITALS: BP 132/83; PULSE 96; RESP 16; TEMP 36.4; O2SAT 100
== END 2023-01-05 09:52 | disposition home or self-care (01) ==
PROVIDERS: Emergency Provider Nurse Practitioner
DX: J06.9 Acute upper respiratory infection, unspecified (principal); Z87.891 Personal history of nicotine dependence
CPT/HCPCS: 87081; 87804; 87880; 99213; G0463

== ENCOUNTER 2023-05-21 13:25 | Emergency (ER) | payer OTHER, SELFPAY ==
[2023-05-21 13:43] VITALS: BP 130/93; PULSE 92; RESP 16; TEMP 36.3; O2SAT 100
[2023-05-21 14:16] LABS: Basophils Percent Auto 0.4 % (0.2-1.2); Eosinophils Absolute Auto 0.1 K/mm3 (0-0.3); Hematocrit 41.6 % (37.0-47.0); Hemoglobin 13.8 g/dL (12.0-15.0); Immature Granulocyte Absolute 0.05 K/mm3 (0.00-0.031); Immature Granulocyte Percent A 0.7 % (0-0.5); Lymphocytes Absolute Auto 1.88 K/mm3 (0.9-3.2); Mean Corpuscular HGB Conc 33.2 g/dl (32-36); Mean Corpuscular Hemoglobin 29.1 pg (26-34); Mean Corpuscular Volume 87.6 fl (80-100); Mean Platelet Volume 9.9 fl (7.4-10.4); Monocytes Absolute Auto 0.7 K/mm3 (0.1-0.6); Monocytes Percent Auto 9.4 % (2.6-8.5); Neutrophils Absolute Auto 4.5 K/mm3 (1.3-6.7); Neutrophils Percent Auto 62.5 % (45.5-73.1); Platelet Count Result 381 k/mm3 (150-375); Red Blood Count 4.75 M/mm3 (4.2-5.4); Red Cell Distribution Width 13.3 % (11.5-14.5); White Blood Count 7.2 K/mm3 (4.5-10.0)
[2023-05-21 14:20] LABS: Alanine Aminotransferase 22 U/L (6-35); Albumin Level 4.5 g/dL (3.5-5.1); Alkaline Phosphatase 71 U/L (38-126); Anion Gap 11 mmol/L (8-16); Appearance Urine Clear (Clear); Aspartate Amino Transferase 26 U/L (14-36); Bilirubin Urine Negative (Negative); Bilirubin,Total 0.3 mg/dL (0.2-1.3); Blood Urea Nitrogen 7 mg/dL (7-17); Blood Urine Negative (Negative); Calcium 9.3 mg/dL (8.4-10.2); Carbon Dioxide 20 mmol/L (22-30); Chloride 109 mmol/L (98-107); Color Urine Yellow (Yellow); Estimated CRCL calculation 119 ml/min; Estimated Glomerular Filt Rate > 60; Glucose 105 mg/dL (65-110); Glucose Urine UA Negative (Negative); Ketones Urine Negative (Negative); Leukocyte Esterase Ur Negative LEU/UL (Negative); Lipase 59 U/L (23-300); Nitrate Urine Negative (Negative); Protein Urine Negative (Negative); Sodium 140 mmol/L (137-145); Specific Grav Ur 1.005 (1.001-1.035)
[2023-05-21 14:21] VITALS: BP 132/116; PULSE 84; RESP 20; O2SAT 99
[2023-05-21 14:26] VITALS: BP 125/77; BP 128/68; BP 134/100; PULSE 81; PULSE 85; PULSE 86
[2023-05-21 14:26] LABS: Add Urine Microscopic? NO
[2023-05-21 14:59] LABS: Pregnancy On Board Control Positive; Urine Pregnancy Test Negative
--- NOTE | 2023-05-21 15:27 | ED.GENADULT ---
HPI - General Adult General Chief complaint: Nausea/Vomiting/Diarrhea Stated complaint: n/v Time Seen by Provider: 05/21/23 14:13 History of Present Illness HPI narrative: 38-year-old female presented to the emergency department for evaluation nausea vomiting and diarrhea this been going on since Sunday. Patient states she has started developing the diarrhea on Sunday and has had watery and soft stools. Patient began having some nausea and vomiting last night. Patient denies any abdominal pain but states she does have intermittent cramping when she has a bowel movement. Patient denies any blood in her stool. Patient denies any significant prior history of diarrhea or nausea and vomiting. Patient reports he does have a history of appendectomy and . Related Data Allergies Allergy/AdvReac Type Severity Reaction Status Date / Time levofloxacin Allergy Severe Anaphylactic Verified 05/21/23 14:25 Shock Review of Systems Review of Systems: All systems reviewed & are unremarkable except as noted in HPI and below PMFSH Past Medical History Medical History Anemia With . Anxiety Depression Hypothyroidism Not currently on medication. Surgical History Surgical History History of appendectomy (~03/2015) History of section (~09/2009) Family History Family History Mother Hypothyroidism Other Unknown family medical history Social History Social History Smoking packs per day: 1 Smoking cigarettes per day: 20.0 Years smoked: 20 Smoking pack-years: 20.00 Smoking status: Current every day smoker Tobacco type: cigarettes Second hand tobacco smoke exposure: No Smoking end date: 05/24/20 Alcohol intake: current Drinks per week: 1 Alcohol use details: Social Substance use: never Living arrangements: with family Additional living arrangements comments: Lives in [place] with her Additional occupation/education comments: Not currently employed. Gender identity (if verbalized by the patient): Female Spiritual care concerns: No Exam Narrative: APPEARANCE: Well appearing, no pain, no distress, well-nourished. HEAD: normocephalic, atraumatic. EYES: PERRLA/EOMI, conjunctivae clear. NOSE: Normal no drainage NECK: Supple. No adenopathy, no masses. RESPIRATORY: Airway patent, respirations nonlabored. Clear to auscultation bilaterally, no rales, rhonchi, wheezing. CARDIOVASCULAR: Regular rate and rhythm without murmurs rubs or gallops. ABDOMINAL: Soft, nontender, nondistended, normal bowel sounds MUSCULOSKELETAL: Moves all extremities. Strength/ROM intact, No edema, No calf tenderness. NEURO: Alert. Cranial nerves II through XII intact. Grossly intact Course Course Emergency Course: 38-year-old female presented ED for evaluation of nausea vomiting and diarrhea. Patient was treated with IV fluids IV Zofran and was updated on the work-up. Patient was afebrile has no leukocytosis and has no significant abnormalities on her CMP. UA was negative for infection and . Patient was unable to provide a stool sample for us. Patient reports she feels significantly improved in the ED. Patient was at the nodules of the work-up. All question concerns were addressed. Patient has a soft nontender abdomen. Low concern for colitis, diverticulitis, appendicitis. Vital Signs Vital signs: Vital Signs Temperature 97.4 F L 05/21/23 13:43 Pulse Rate 92 05/21/23 13:43 Respiratory Rate 16 05/21/23 13:43 Blood Pressure 130/93 H 05/21/23 13:43 Pulse Oximetry 100 05/21/23 13:43 Oxygen Delivery Room Air 05/21/23 13:43 Temperature 97.4 F L 05/21/23 13:43 Pulse Rate 63 05/21/23 17:14 Respiratory Rate 20
[2023-05-21] MEDS: ONDANSETRON INJ 4 MG/2 ML VIAL IV PUSH (15:44)
[2023-05-21] MEDS: SODIUM CHLORIDE 0.9% IV 1,000 ML 999 ML IV CONT (15:44)
[2023-05-21 17:14] VITALS: BP 126/72; PULSE 63; RESP 20; O2SAT 100
== END 2023-05-21 17:39 | disposition home or self-care (01) ==
PROVIDERS: Emergency Medicine; Emergency Provider Emergency Medicine
DX: R11.2 Nausea with vomiting, unspecified (principal); R19.7 Diarrhea, unspecified; F17.210 Nicotine dependence, cigarettes, uncomplicated; D64.9 Anemia, unspecified; F41.9 Anxiety disorder, unspecified; F32.A Depression, unspecified
CPT/HCPCS: 36415; 80053; 81003; 81025; 83690; 85025; 96361; 96374; 99284; J2405; J7030

== ENCOUNTER 2023-06-01 15:51 | Emergency (ER) | payer OTHER, SELFPAY ==
[2023-06-01 16:05] VITALS: BP 143/80; PULSE 102; RESP 16; TEMP 36.7; O2SAT 100
--- NOTE | 2023-06-01 16:42 | ED.URI ---
HPI - URI/Sore Throat General Chief Complaint: Upper Respiratory Infection Stated Complaint: SORE THROAT Time Seen by Provider: 06/01/23 16:42 Source: patient, RN notes reviewed and old records reviewed Mode of arrival: ambulatory Limitations: no limitations History of Present Illness HPI Narrative: 38 year old female who presents to express care with complaints of sore throat for the past 2 days. 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 Patient reports that she has had a headache and some body aches denies any fevers , cough or any feelings of congestion. No known fevers, MD elicited complaint: sore throat and other (headache and some body aches) Onset (ago): day(s) Able to tolerate fluids by mouth: Yes Treatments prior to arrival: other (Naprosyn and Claritin) Related Data Home Medications Medication Instructions Recorded Confirmed loratadine 10 mg tablet (Claritin) 10 mg PO DAILY 06/01/23 06/01/23 Allergies Allergy/AdvReac Type Severity Reaction Status Date / Time levofloxacin Allergy Severe Anaphylactic Verified 06/01/23 15:59 Shock Review of Systems Review of Systems: CONSTITUTIONAL: Denies malaise, chills, sweats, or fever. EYES: Denies visual changes, redness, or discharge. ENT: Reports no rhinorrhea, congestion, sinus pain, states itchy ears,positive for sore throat. CARDIOVASCULAR: Denies chest pain, palpitations, or edema. RESPIRATORY: Reports no cough.? Denies dyspnea. GASTROINTESTINAL: Denies abdominal pain, nausea, vomiting, diarrhea SKIN: Denies rash or itching. MUSCULOSKELETAL:positive for myalgia. NEUROLOGIC: positive for headache. All systems reviewed & are unremarkable except as noted in HPI and below PMFSH Past Medical History Medical History Anemia With . Anxiety Depression Hypothyroidism Not currently on medication. Surgical History Surgical History History of appendectomy (~03/2015) History of section (~09/2009) Family History Family History Mother Hypothyroidism Other Unknown family medical history Social History Social History Smoking packs per day: 1 Smoking cigarettes per day: 20.0 Years smoked: 20 Smoking pack-years: 20.00 Smoking status: Current every day smoker Tobacco type: cigarettes Second hand tobacco smoke exposure: No Smoking end date: 05/24/20 Alcohol intake: current Drinks per week: 1 Alcohol use details: Social Substance use: never Living arrangements: with family Additional living arrangements comments: Lives in [place] with her Additional occupation/education comments: Not currently employed. Gender identity (if verbalized by the patient): Female Spiritual care concerns: No Comments At time of signature, agree with nursing past medical, surgical, social and family history. There is no relevant family history pertinent to the presenting complaint Exam Narrative: GENERAL: Well-appearing, well-nourished, and in no acute distress. HEAD: Normocephalic EYES: PERRLA, conjunctivae clear ENT: Nares clear, turbinates edematous and erythematous, clear discharge. Mucous membranes moist. TM pearly goldberg with dull light reflex bilaterally; no tragal tenderness. Oropharynx erythematous without lesions. Tonsils red and enlarged and without exudate, no drooling, no hoarseness, no trismus, uvula midline. NECK: Supple. lymphadenopathy CHEST: Clear to auscultation, breath sounds equal. No wheezing, rhonchi, rales, or stridor. No respiratory distress, speaks in full sentences. SAO2 100% on room air HEART: Regular rate and rhythm. No murmur heard. SKIN: Warm, dry, no rash. NEURO: Alert and oriented x3.
== END 2023-06-01 17:03 | disposition home or self-care (01) ==
PROVIDERS: Emergency Provider Registered Nurse
DX: J03.90 Acute tonsillitis, unspecified (principal); E03.9 Hypothyroidism, unspecified; F17.210 Nicotine dependence, cigarettes, uncomplicated
CPT/HCPCS: 87081; 87880; 99213; G0463

== ENCOUNTER 2023-07-15 18:34 | Emergency (ER) | payer OTHER, SELFPAY ==
--- NOTE | 2023-07-15 18:39 | ED.URI ---
HPI - URI/Sore Throat General Chief Complaint: Upper Respiratory Infection Stated Complaint: Strep symptoms Time Seen by Provider: 07/15/23 18:47 Source: patient, RN notes reviewed and old records reviewed Mode of arrival: ambulatory Limitations: no limitations History of Present Illness HPI Narrative: 38-year-old female presents to the [facility] with complaints of a sore throat, headache, body aches for 5 days. States that she just does not feel right. No numbness or tingling in extremities. Has taken Tylenol, Motrin and magnesium with no relief to the headache. Denies any other treatment Denies fevers Onset (ago): day(s) (5) Consistency: constant Treatments prior to arrival: acetaminophen and ibuprofen Related Data Allergies Allergy/AdvReac Type Severity Reaction Status Date / Time levofloxacin Allergy Severe Anaphylactic Verified 07/15/23 18:39 Shock Review of Systems Review of Systems: All systems reviewed & are unremarkable except as noted in HPI and below Constitutional: Constitutional: Reports as per HPI and Reports headache(s) Eyes: Eyes: Reports no additional eye complaints ENT: Reports as per HPI Cardiovascular: Cardiovascular: Reports no additional cardiovascular complaints, Denies chest pain and Denies dyspnea Respiratory: Respiratory: Reports as per HPI, Denies chest congestion, Reports cough and Denies dyspnea Gastrointestinal: Gastrointestinal: Reports no additional gastrointestinal complaints, Denies abdominal pain, Denies nausea and Denies vomiting Musculoskeletal: Musculoskeletal: Reports no additional musculoskeletal complaints Integumentary/Breasts: Skin/Breast: Reports system reviewed and no additional complaints, except as docu Neurologic: Reports system reviewed and no additional complaints, except as documented Psychiatric: Psychiatric: Reports no additional psychiatric complaints Allergic/Immunologic: Allergic/Immunologic: Reports no additional allergic/immunologic complaints [facility] Past Medical History Medical History Anemia With . Anxiety Depression Hypothyroidism Not currently on medication. Surgical History Surgical History History of appendectomy (~03/2015) History of section (~09/2009) Family History Family History Mother Hypothyroidism Other Unknown family medical history Social History Social History (Reviewed 07/15/23 @ 19:00 by FRANCISCO Shafer Smoking packs per day: 1 Smoking cigarettes per day: 20.0 Years smoked: 20 Smoking pack-years: 20.00 Smoking status: Current every day smoker Tobacco type: cigarettes Second hand tobacco smoke exposure: No Smoking end date: 05/24/20 Alcohol intake: current Drinks per week: 1 Alcohol use details: Social Substance use: never Living arrangements: with family Additional living arrangements comments: Lives in [place] with her Additional occupation/education comments: Not currently employed. Gender identity (if verbalized by the patient): Female Spiritual care concerns: No Comments At the time of my signature, I reviewed and agree with the nursing past medical, surgical, social, and family history. There is no relevant family history pertinent to the patient complaint. Exam Const: General: cooperative, healthy appearing, comfortable, no acute distress, well developed, alert and well nourished Nutritional Appearance: well nourished and obese Orientation/consciousness: patient oriented x3 Limitations: no limitations HENMT: Head: normal to inspection Ears: hearing grossly normal bilaterally, external ears normal, TM's normal bilaterally, EAC's normal, mastoids normal and no periauricular adenopathy Face/Nose/Sinus: Normal external nose present, Normal nares present, Normal nasal mu
[2023-07-15 18:48] VITALS: BP 136/98; PULSE 99; RESP 16; TEMP 36.7; O2SAT 99
== END 2023-07-15 19:13 | disposition home or self-care (01) ==
PROVIDERS: Emergency Provider Nurse Practitioner
DX: J02.9 Acute pharyngitis, unspecified (principal); J06.9 Acute upper respiratory infection, unspecified; Z87.891 Personal history of nicotine dependence
CPT/HCPCS: 87081; 87880; 99213; G0463

== ENCOUNTER 2023-07-16 01:07 | Emergency (ER) | payer OTHER, SELFPAY ==
[2023-07-16 01:10] VITALS: BP 140/93; PULSE 90; RESP 20; TEMP 36.6; O2SAT 100
[2023-07-16 02:19] LABS: Basophils Percent Auto 0.3 % (0.2-1.2); Eosinophils Absolute Auto 0.1 K/mm3 (0-0.3); Eosinophils Percent Auto 0.9 % (0-4.4); Hematocrit 42.3 % (37.0-47.0); Hemoglobin 13.8 g/dL (12.0-15.0); Immature Granulocyte Absolute 0.04 K/mm3 (0.00-0.031); Immature Granulocyte Percent A 0.3 % (0-0.5); Lymphocytes Absolute Auto 2.98 K/mm3 (0.9-3.2); Lymphocytes Percent Auto 25.7 % (18.3-44.2); Mean Corpuscular HGB Conc 32.6 g/dl (32-36); Mean Corpuscular Hemoglobin 28.6 pg (26-34); Mean Corpuscular Volume 87.6 fl (80-100); Mean Platelet Volume 9.9 fl (7.4-10.4); Monocytes Absolute Auto 0.8 K/mm3 (0.1-0.6); Monocytes Percent Auto 7.2 % (2.6-8.5); Neutrophils Absolute Auto 7.6 K/mm3 (1.3-6.7); Neutrophils Percent Auto 65.6 % (45.5-73.1); Platelet Count Result 415 k/mm3 (150-375); Red Blood Count 4.83 M/mm3 (4.2-5.4); Red Cell Distribution Width 13.5 % (11.5-14.5); White Blood Count 11.6 K/mm3 (4.5-10.0)
[2023-07-16 02:29] LABS: Alanine Aminotransferase 23 U/L (6-35); Albumin Level 4.5 g/dL (3.5-5.1); Alkaline Phosphatase 67 U/L (38-126); Anion Gap 9 mmol/L (8-16); Aspartate Amino Transferase 24 U/L (14-36); Bilirubin,Total 0.7 mg/dL (0.2-1.3); Blood Urea Nitrogen 12 mg/dL (7-17); Calcium 9.6 mg/dL (8.4-10.2); Carbon Dioxide 21 mmol/L (22-30); Chloride 107 mmol/L (98-107); Estimated CRCL calculation 118 ml/min; Estimated Glomerular Filt Rate > 60; Glucose 102 mg/dL (65-110); Potassium 3.8 mmol/L (3.4-5.0); Sodium 137 mmol/L (137-145)
[2023-07-16] MEDS: diphenhydrAMINE HCl CAP 25 MG CAPSULE PO (02:35)
[2023-07-16] MEDS: IBUPROFEN 600 MG TABLET PO (02:35)
[2023-07-16] MEDS: ACETAMINOPHEN 325 MG TABLET 650 MG PO (02:36)
[2023-07-16] MEDS: ONDANSETRON HCL ODT 4 MG TABLET PO (02:36)
--- NOTE | 2023-07-16 02:44 | ED.GENADULT ---
HPI - General Adult General Chief complaint: Recheck/Abnormal Lab/Rx Stated complaint: High bp, high HR Time Seen by Provider: 07/16/23 01:40 History of Present Illness HPI narrative: Patient presents the emergency department from home with just not feeling right . She is also concerned that her blood pressures been elevated the past couple days. Woke up yesterday morning with discharge from the lobe of her right ear. She has gauges in and it was draining. Right ear pain feels like it has a heartbeat . Patient has also had a persistent generalized headache and nausea. Patient has had a decreased appetite which she states is very abnormal she appears anxious and states she does not feel right. Blood pressures are normally 1 teens over 80s or 90s but it has been up to 150s over 100s at home. She went to urgent care yesterday morning for a strep test was done and negative. She has had white patches on the back of her mouth for days. In addition she took a home COVID test that was negative. She does not currently take anything for her blood pressure. Related Data Allergies Allergy/AdvReac Type Severity Reaction Status Date / Time levofloxacin Allergy Severe Anaphylactic Verified 07/15/23 18:39 Shock Review of Systems Review of Systems: Negative except what is documented in the HPI [facility] Past Medical History Medical History Anemia With . Anxiety Depression Hypothyroidism Not currently on medication. Surgical History Surgical History History of appendectomy (~03/2015) History of section (~09/2009) Family History Family History Mother Hypothyroidism Other Unknown family medical history Social History Social History Smoking packs per day: 1 Smoking cigarettes per day: 20.0 Years smoked: 20 Smoking pack-years: 20.00 Smoking status: Current every day smoker Tobacco type: cigarettes Second hand tobacco smoke exposure: No Smoking end date: 05/24/20 Alcohol intake: current Drinks per week: 1 Alcohol use details: Social Substance use: never Living arrangements: with family Additional living arrangements comments: Lives in [place] with her Additional occupation/education comments: Not currently employed. Gender identity (if verbalized by the patient): Female Spiritual care concerns: No Exam Narrative: GENERAL: well-nourished, and in no acute distress. Uncomfortable HEAD: Normocephalic, atraumatic. EYES: PERRLA and EOMI. ENT: Nares clear, no rhinorrhea or epistaxis. Mucous membranes moist. right ear drainage from around earring but no fluctuance NECK: Supple. CHEST: Clear to auscultation. No respiratory distress. HEART: Regular rate and rhythm. ABDOMEN: Soft, nontender, nondistended. EXTREMITIES: Normal range of motion. No edema. SKIN: Warm, dry, no rash. NEURO: No focal deficits. Alert and oriented x3. PSYCH: Normal mood and affect. Course Course Emergency Course: Differential diagnosis includes but not limited to stress, viral infection, earlobe infection Vital Signs Vital signs: Vital Signs Temperature 36.6 C 07/16/23 01:10 Pulse Rate 90 07/16/23 01:10 Respiratory Rate 20 07/16/23 01:10 Blood Pressure 140/93 H 07/16/23 01:10 Pulse Oximetry 100 07/16/23 01:10 Oxygen Delivery Room Air 07/16/23 01:10 Temperature 36.6 C 07/16/23 01:10 Pulse Rate 90 07/16/23 01:10 Respiratory Rate 20 07/16/23 01:10 Blood Pressure 140/93 H 07/16/23 01:10 Pulse Oximetry 100 07/16/23 01:10 Oxygen Delivery Room Air 07/16/23 01:10 Medical Decision Making MDM Narrative Medical decision making narrative: Patient states she is feeling much better. Blood pressures have also
[2023-07-16 03:00] VITALS: BP 118/79; PULSE 57; RESP 16; O2SAT 98
[2023-07-16 03:30] VITALS: BP 118/83; PULSE 66; RESP 12; O2SAT 100
--- NOTE | 2023-07-16 04:10 | PC.NURSE ---
Pt removed all monitoring equipment and has rolled over to side. Resp even and nonlabored. Appears to be sleeping.
[2023-07-16 04:51] VITALS: BP 123/82; PULSE 76; RESP 14; O2SAT 98
== END 2023-07-16 05:08 | disposition home or self-care (01) ==
PROVIDERS: Emergency Provider Emergency Medicine
DX: R51.9 Headache, unspecified (principal); R11.0 Nausea; H66.90 Otitis media, unspecified, unspecified ear; E03.9 Hypothyroidism, unspecified; I10 Essential (primary) hypertension; F17.210 Nicotine dependence, cigarettes, uncomplicated
CPT/HCPCS: 36415; 80053; 84443; 85025; 99283; A9270

== ENCOUNTER 2023-07-28 15:29 | Emergency (ER) | payer OTHER, SELFPAY ==
[2023-07-28 15:42] VITALS: BP 144/95; PULSE 106; RESP 15; TEMP 37.6; O2SAT 99
[2023-07-28] MEDS: KETOROLAC 30 MG/ML VIAL (*BKC) IM (15:55)
[2023-07-28] MEDS: METOCLOPRAMIDE HCL INJ 10 MG/2 ML VIAL IM (15:57)
[2023-07-28 16:04] VITALS: BP 136/90; PULSE 97; RESP 19; O2SAT 100
[2023-07-28 16:17] LABS: Appearance Urine Clear (Clear); Bacteria Urine None Seen /hpf; Bilirubin Urine Negative (Negative); Blood Urine Trace (Negative); Color Urine Yellow (Yellow); Glucose Urine UA Negative (Negative); Ketones Urine 1+ mg/dL (Negative); Leukocyte Esterase Ur Negative LEU/UL (Negative); Nitrate Urine Negative (Negative); Non Pathogenic Casts 0-2; Protein Urine Negative (Negative); RBC Urine 0-2 /hpf (0-2); Specific Grav Ur 1.013 (1.001-1.035); Squamous Epithelial Cell Urine None seen /hpf (Few); Urobilinogen Urine 0.2 mg/dL (<2.0); WBC Urine 0-5 /hpf
[2023-07-28 16:30] LABS: Add Urine Microscopic? YES
[2023-07-28 16:35] VITALS: BP 138/87; PULSE 85; RESP 18; O2SAT 100
--- NOTE | 2023-07-28 16:45 | ED.GENADULT ---
HPI - General Adult General Chief complaint: Unspecified Stated complaint: ear infection/abd pain/not sleeping Time Seen by Provider: 07/28/23 15:35 History of Present Illness HPI narrative: Patient was just started on Paxil for anxiety, is on her fifth day and has not been able to sleep, she also has a headache, and her ear hurts. She had also been recently treated for a UTI and she still occasionally has some pelvic cramping which is consistent pain from her cysts. Also some nausea. Related Data Allergies Allergy/AdvReac Type Severity Reaction Status Date / Time levofloxacin Allergy Severe Anaphylactic Verified 07/28/23 15:48 Shock Review of Systems Review of Systems: All systems reviewed & are unremarkable except as noted in HPI and below PMFSH Past Medical History Medical History Anemia With . Anxiety Depression Hypothyroidism Not currently on medication. Surgical History Surgical History History of appendectomy (~03/2015) History of section (~09/2009) Family History Family History Mother Hypothyroidism Other Unknown family medical history Social History Social History Smoking packs per day: 1 Smoking cigarettes per day: 20.0 Years smoked: 20 Smoking pack-years: 20.00 Smoking status: Current every day smoker Tobacco type: cigarettes Second hand tobacco smoke exposure: No Smoking end date: 05/24/20 Alcohol intake: current Drinks per week: 1 Alcohol use details: Social Substance use: never Living arrangements: with family Additional living arrangements comments: Lives in [place] with her Additional occupation/education comments: Not currently employed. Gender identity (if verbalized by the patient): Female Spiritual care concerns: No Exam Narrative: EXAMINATION OF ORGAN SYSTEMS/BODY AREAS: Constitutional: Vital signs per nursing GENERAL: Occasionally tearful HEAD: Normal with no signs of head trauma. EYES: EOMI, conjunctiva normal ENT: Hearing grossly intact LUNGS: Nonlabored breathing. HEART: [Regular rate and rhythm] ABD: [Soft], [nontender to palpation] EXT: Normal range of motion SKIN: [No rashes or lesions.] NEURO: [Alert and oriented x 3. No gross focal sensory or strength deficits.] PSYCH: Tearful affect Course Vital Signs Vital signs: Vital Signs Temperature 99.7 F H 07/28/23 15:42 Pulse Rate 106 H 07/28/23 15:42 Respiratory Rate 15 07/28/23 15:42 Blood Pressure 144/95 H 07/28/23 15:42 Pulse Oximetry 99 07/28/23 15:42 Oxygen Delivery Room Air 07/28/23 15:42 Temperature 99.7 F H 07/28/23 15:42 Pulse Rate 85 07/28/23 16:35 Respiratory Rate 18 07/28/23 16:35 Blood Pressure 138/87 07/28/23 16:35 Pulse Oximetry 100 07/28/23 16:35 Oxygen Delivery Room Air 07/28/23 15:42 Medical Decision Making MDM Narrative Medical decision making narrative: Patient with history of migraines, anxiety, ovarian cyst, presents here with insomnia and headache and some pelvic pain for the last few days, since she started taking a new antidepressant, initial vitals she was tachycardic and on exam tearful, she has no neurologic deficits, her right TM is bulging and red, abdomen is soft and nontender. I will recheck UA to ensure she no longer has UTI, started on antibiotics for the ear infection, and treat her headache. IM Reglan and IM Toradol given. UA negative. On reevaluation, she states she is feeling much better, her vital signs are now normal, she is agreeable to outpatient follow-up at this time, I let her know she can return for any further issues Vital Signs Vital Signs: Vital Signs Temperature 99.7 F H 07/28/23 15:42 Pulse Rate 106 H 07/28/23 15:
== END 2023-07-28 17:09 | disposition home or self-care (01) ==
PROVIDERS: Emergency Provider Emergency Medicine
DX: R51.9 Headache, unspecified (principal); G47.00 Insomnia, unspecified; H92.03 Otalgia, bilateral; F41.9 Anxiety disorder, unspecified; F32.A Depression, unspecified; Z87.891 Personal history of nicotine dependence
CPT/HCPCS: 81001; 81025; 96372; 99284; J1885; J2765

== ENCOUNTER 2023-08-10 11:20 | Outpatient (CLI) | payer OTHER, SELFPAY ==
--- NOTE | ~2023-08-10 | XR_ITS ---
EXAMINATION: XR chest 2V DATE: 08/10/2023 11:39 INDICATION: Tobacco use TECHNIQUE: Frontal and lateral views of the chest are obtained COMPARISON: 05/24/2020 FINDINGS: The lungs are free of acute opacities. No pleural effusion or pneumothorax. The cardiomedia stinal silhouette is normal. There is mild thoracic spondylosis. IMPRESSION: 1. No acute cardiopulmonary abnormality. Reviewed, dictated and finalized at location F. [employer]
== END 2023-08-10 11:21 | disposition home or self-care (01) ==
PROVIDERS: PCP Emergency Medicine; Visit Provider Emergency Medicine
DX: Z72.0 Tobacco use (principal)
CPT/HCPCS: 71046

== ENCOUNTER 2023-09-26 12:36 | Outpatient (CLI) | payer OTHER, SELFPAY ==
[2023-09-26 18:06] LABS: Cholesterol 240 mg/dL (0-200); HDL Direct 38 mg/dL; Triglycerides 237 mg/dL (<150)
[2023-09-26 18:17] LABS: LDL Cholesterol Direct 152 mg/dL
[2023-09-26 18:19] LABS: Hematocrit 43.2 % (37.0-47.0); Hemoglobin 13.8 g/dL (12.0-15.0); Mean Corpuscular HGB Conc 31.9 g/dl (32-36); Mean Corpuscular Hemoglobin 28.3 pg (26-34); Mean Corpuscular Volume 88.5 fl (80-100); Mean Platelet Volume 10.3 fl (7.4-10.4); Platelet Count Result 471 k/mm3 (150-375); Red Blood Count 4.88 M/mm3 (4.2-5.4); Red Cell Distribution Width 13.6 % (11.5-14.5); White Blood Count 11.3 K/mm3 (4.5-10.0)
[2023-09-26 19:10] LABS: Vitamin D 25 Hydroxy 43.3 ng/mL
== END 2023-09-26 12:37 | disposition home or self-care (01) ==
LOC: ANHGOSHLAB 12:38
PROVIDERS: PCP Emergency Medicine; Visit Provider Emergency Medicine
DX: Z00.00 Encounter for general adult medical examination without abnormal findings (principal); F41.9 Anxiety disorder, unspecified; F32.9 Major depressive disorder, single episode, unspecified; R79.9 Abnormal finding of blood chemistry, unspecified; D72.829 Elevated white blood cell count, unspecified
CPT/HCPCS: 36415; 80061; 82306; 85027

== ENCOUNTER 2023-12-29 15:31 | Emergency (ER) | payer OTHER, SELFPAY ==
--- NOTE | ~2023-12-29 | XR_ITS ---
EXAMINATION: XR chest 2V DATE: 12/29/2023 16:35 INDICATION: Cough. TECHNIQUE: Frontal and lateral views of the chest were obtained. COMPARISON: Chest 2 views 08/10/2023 FINDINGS: There is no pneumonia, pleural effusion, or pneumothorax. The heart size is normal. IMPRESSION: 1. No acute cardiopulmonary disease. Reviewed, dictated and finalized at location E.
[2023-12-29 15:41] VITALS: BP 118/86; PULSE 92; RESP 16; TEMP 37.1; O2SAT 99
--- NOTE | 2023-12-29 16:16 | ED.URI ---
HPI - URI/Sore Throat General Chief Complaint: Upper Respiratory Infection Stated Complaint: COUGH/CONGESTION Time Seen by Provider: 12/29/23 16:16 Source: patient and RN notes reviewed Mode of arrival: ambulatory Limitations: no limitations History of Present Illness HPI Narrative: 38-year-old female presents concern for cough since Sunday. She reports she has tried albuterol and [id number] cold medicines without relief. She denies fever, aches, chills, sweats. Reports she can feel wheezing and crackles in her right long MD elicited complaint: cough Related Data Allergies Allergy/AdvReac Type Severity Reaction Status Date / Time levofloxacin Allergy Severe Anaphylactic Verified 12/29/23 15:58 Shock azithromycin [From Zithromax] Allergy Itching Verified 12/29/23 16:02 Review of Systems Review of Systems: CONSTITUTIONAL: Denies malaise, chills, sweats, or fever. EYES: Denies visual changes, redness, or discharge. ENT: Reports rhinorrhea, congestion CARDIOVASCULAR: Denies chest pain, palpitations, or edema. RESPIRATORY: Reports cough. Denies dyspnea. GASTROINTESTINAL: Denies abdominal pain, nausea, vomiting, diarrhea SKIN: Denies rash or itching. MUSCULOSKELETAL: Denies myalgia. NEUROLOGIC: Denies headache. All systems reviewed & are unremarkable except as noted in HPI and below PMFSH Past Medical History Medical History Anemia With . Anxiety Depression Hypothyroidism Not currently on medication. Surgical History Surgical History History of appendectomy (~03/2015) History of section (~09/2009) Family History Family History Mother Hypothyroidism Other Unknown family medical history Social History Social History Smoking packs per day: 1 Smoking cigarettes per day: 20.0 Years smoked: 20 Smoking pack-years: 20.00 Smoking status: Current every day smoker Tobacco type: cigarettes Second hand tobacco smoke exposure: No Smoking end date: 09/07/20 Alcohol intake: current Drinks per week: 1 Alcohol use details: Social Substance use: never Living arrangements: with family Additional living arrangements comments: Lives in [place] with her Additional occupation/education comments: Not currently employed. Gender identity (if verbalized by the patient): Female Spiritual care concerns: No Comments At time of signature, agree with nursing past medical, surgical, social and family history. There is no relevant family history pertinent to the presenting complaint Exam Narrative: GENERAL: Well-appearing, well-nourished, and in no acute distress. HEAD: Normocephalic EYES: PERRLA, conjunctivae clear ENT: Nares clear. Mucous membranes moist. TM pearly goldberg with dull light reflex bilaterally; no tragal tenderness. Oropharynx not erythematous without lesions. Tonsils not enlarged and without exudate, no drooling, no hoarseness, no trismus, uvula midline. NECK: Supple. No lymphadenopathy CHEST: Clear to auscultation, breath sounds equal. No wheezing, rhonchi, rales, or stridor. No respiratory distress, speaks in full sentences. Cough noted HEART: Regular rate and rhythm. No murmur heard. SKIN: Warm, dry, no rash. NEURO: Alert and oriented x3. PSYCH: Normal mood and affect Course Course Emergency Course: Patient is aware of diagnosis, understands and agrees to treatment plan. Anticipatory guidance given. Patient agrees to follow-up as directed and is aware of reasons to seek care at the emergency department. Portions of this record may have been created with voice recognition software Level of Care: Express Care Visit Vital Signs Vital signs: Vital Signs Temperature 98.7 F 12/29/23 15:41 Pulse Rate 92 0
== END 2023-12-29 16:50 | disposition home or self-care (01) ==
PROVIDERS: Emergency Provider Nurse Practitioner; PCP Emergency Medicine
DX: J40 Bronchitis, not specified as acute or chronic (principal); Z87.891 Personal history of nicotine dependence
CPT/HCPCS: 71046; 99213; G0463

== ENCOUNTER 2025-01-13 18:33 | Emergency (ER) | payer SELFPAY ==
--- NOTE | 2025-01-13 18:35 | ED_ITS ---
HPI - Skin/Abscess/Foreign Bdy General Chief complaint: Skin/Abscess/Foreign Body Stated complaint: RASH Time Seen by Provider: 01/13/25 19:17 Source: patient and RN notes reviewed Mode of arrival: ambulatory Limitations: no limitations History of Present Illness HPI narrative: 39-year-old female presents with concern for rash on the back of her neck/upper back. She reports it has been there about a week to 2 weeks. Reports that happened after she had her hair trimmed with clippers in that area. She reports she has tried [id number] remedies without relief. She denies any spread of the rash. MD complaint: rash Related Data Allergies Allergy/AdvReac Type Severity Reaction Status Date / Time levofloxacin Allergy Severe Anaphylactic Verified 01/13/25 18:59 Shock azithromycin (From Zithromax) Allergy Itching Verified 01/13/25 18:59 Review of Systems Review of Systems: CONSTITUTIONAL: Denies malaise, chills, sweats, or fever. EYES: Denies redness, or discharge. ENT: Denies rhinorrhea, congestion, swollen lips, swollen tongue CARDIOVASCULAR: Denies chest pain, palpitations, or edema. RESPIRATORY: Denies cough or dyspnea. GASTROINTESTINAL: Denies abdominal pain, nausea, vomiting SKIN: Reports itchy rash on the back of her neck/upper back MUSCULOSKELETAL: Denies joint pain or myalgia. NEUROLOGIC: Denies headache. All systems reviewed & are unremarkable except as noted in HPI and below PMFSH Past Medical History Medical History Anemia With . Anxiety Depression Hypothyroidism Not currently on medication. Surgical History Surgical History History of appendectomy (~03/2015) History of section (~09/2009) Family History Family History Mother Hypothyroidism Other Unknown family medical history Social History Social History Smoking packs per day: 1 Smoking cigarettes per day: 20.0 Years smoked: 20 Smoking pack-years: 20.00 Smoking status: Current every day smoker Tobacco type: cigarettes Second hand tobacco smoke exposure: No Smoking end date: 05/24/20 Alcohol intake: current Drinks per week: 1 Alcohol use details: Social Substance use: never Living arrangements: with family Additional living arrangements comments: Lives in [place] with her Additional occupation/education comments: Not currently employed. Gender identity (if verbalized by the patient): Female Spiritual care concerns: No Comments At time of signature, agree with nursing past medical, surgical, social and family history. There is no relevant family history pertinent to the presenting complaint Exam Narrative: GENERAL: Well-appearing, well-nourished, and in no acute distress. HEAD: Normocephalic, atraumatic. EYES: PERRLA, conjunctivae clear, and EOMI. ENT: Mucous membranes moist. Oropharynx without edema, erythema or lesions. NECK: Supple. No lymphadenopathy CHEST: Clear to auscultation. No respiratory distress. HEART: Regular rate and rhythm. SKIN: Warm, dry. Confluent Patch erythematous papules noted to the upper back/lower neck NEURO: Alert and oriented x3. PSYCH: Normal mood and affect Course Course Emergency Course: Patient is aware of diagnosis, understands and agrees to treatment plan. Anticipatory guidance given. Patient agrees to follow-up as directed and is aware of reasons to seek care at the emergency department. Portions of this record may have been created with voice recognition software Level of Care: Express Care Visit Vital Signs Vital signs: Reviewed. MDM - Skin/Abscess/Foreign Bdy MDM Narrative Medical decision making narrative: Does not appear at this time to be erythema multiforme, bullous, SJS, TEN; no evidence at this time to suggest RMSF, endocarditis or Lyme disease; patient looks well, nontoxic and is tolerating oral intake; no neurologic signs or symptoms; no headache, photophobia or neck pain; afebrile; appropriate for initial outpatient treatment; discussed the importance of follow-up, patient agrees; question, viral exanthema, contact dermatitis, allergic dermatitis, eczema, urticaria, tinea. No soft palate or uvula edema, no tongue, lip edema or other mucosal involvement, no respiratory compromise, no stridor, no wheezing, no wheezing, no history of syncope, no hypotension, no nausea, vomiting, or diarrhea. Instructed patient to go to nearest ER immediately for any worsening symptoms including but not limited to: fever, spreading rash, pain, sore throat, headache, dizziness, chest pain, trouble breathing, or any symptoms concerning to the patient. Critical Care Time Critical Care Time Critical Care Time: No Discharge Plan Discharge Clinical Impression: Contact dermatitis Patient Disposition: Home Condition: Stable Instructions: Contact Dermatitis (ED) Additional Instructions: Wash the area with gentle soap and water only. Use skin cream as prescribed to reduce itchiness Avoid scratching when possible to prevent worsening of the condition and disruption of the skin that could lead to bacterial infection To relieve itching, place a cool washcloth or some ice over the area that itches, rather than scratching Follow up with primary care provider or seek ER if you have trouble breathing, become hoarse, or start wheezing, develop belly cramps, vomiting or feel dizzy. Patient Language: Telugu Prescriptions: New prednisone 20 mg tablet 40 mg PO DAILY 5 Days Qty: 10 0RF triamcinolone acetonide 0.1 % cream 1 applic TOPICAL BID 7 Days Qty: 80 0RF Follow-up/Referrals: Carley,Kisha Stoner CNP [Primary Care Provider] - Time of Disposition: 19:21
[2025-01-13 18:46] VITALS: BP 134/78; PULSE 87; RESP 16; TEMP 37; O2SAT 100
== END 2025-01-13 19:29 | disposition home or self-care (01) ==
PROVIDERS: Emergency Provider Nurse Practitioner; PCP Nurse Practitioner
DX: L25.9 Unspecified contact dermatitis, unspecified cause (principal); Z87.891 Personal history of nicotine dependence
CPT/HCPCS: 99213; G0463